=== PATIENT | male | born 1985 | race African-American/Black ===

== ENCOUNTER 2017-09-19 18:22 | Emergency (ER) | payer SELFPAY ==
[~2017-09-19] VITALS: Ht 182.9 cm; Wt 79.4 kg
--- NOTE | 2017-09-19 18:28 | NUR ---
[employer] AT THE BEDSIDE, PT RESTING, NO DISTRESS NOTED, AWAITING MSE.
[2017-09-19] MEDS ORDERED: OLANZAPINE 10 MG VIAL IM ONE ×2 (18:43→18:45)
--- NOTE | 2017-09-19 18:45 | NUR ---
MEDICATION ADMINISTERED, ACI/RX X1 GIVEN TO [employer], PT TAKEN INTO CUSTODY.
[2017-09-19 18:52] VITALS: BP 142/70
== END 2017-09-19 18:53 ==
LOC: ER 18:23
DX: F20.9 Schizophrenia, unspecified (principal)
CPT/HCPCS: A4663; J2358